=== PATIENT | female | born 1965 | race Caucasian/White ===

== ENCOUNTER 2018-04-23 12:02 | Emergency (ER) | payer OTHER ==
[~2018-04-23] VITALS: Ht 152.4 cm; Wt 80.0 kg
[~2018-04-23 12:02] MED LIST: ANTIVERT12.5 MG PO; AUGMENTIN875TAB PO; BACTRIM DS1 TAB OR; LISINOPRIL10 MG PO; MEDDOSEPAK PO; ZITHROMAX250 MG PO
[2018-04-23 13:59] VITALS: BP 150/90
== END 2018-04-23 14:10 | disposition home or self-care (01) | DRG 605 ==
LOC: ED 12:02
DX: S90.31XA Contusion of right foot, initial encounter (principal); S60.211A Contusion of right wrist, initial encounter; S40.011A Contusion of right shoulder, initial encounter; W10.9XXA Fall (on) (from) unspecified stairs and steps, initial encounter; Y92.009 Unspecified place in unspecified non-institutional (private) residence as the place of occurrence of the external cause

== ENCOUNTER 2019-12-18 12:01 | Emergency (ER) | payer OTHER ==
[~2019-12-18] VITALS: Ht 165.1 cm; Wt 79.5 kg
[2019-12-18] MEDS ORDERED: TESSALON PERLE100 MG PO (13:59)
[2019-12-18 14:01] VITALS: BP 159/95
--- NOTE | 2019-12-20 09:37 | NUR ---
Notified patient of positive Covid results. Advised patient to quarantine until contacted by the health department with further instructions. Patient c/o fatigue and slight hadache. Patient denies fever, cough or SOB. Advised patient to return to ED with difficulty breathing or other urgent needs. Patient verbalized understanding.
== END 2019-12-18 14:09 | disposition home or self-care (01) | DRG 179 ==
LOC: ED 12:01
DX: U07.1 COVID-19 (principal)

== ENCOUNTER 2023-10-29 16:43 | Emergency (ER) | payer OTHER ==
[~2023-10-29 16:43] MED LIST changes: +TESSALON PERLE100 MG PO
== END 2023-10-29 17:32 | disposition left against medical advice (07) | DRG 951 ==
LOC: ED 16:43 → LWOBS 17:32
DX: Z53.21 Procedure and treatment not carried out due to patient leaving prior to being seen by health care provider (principal)

== ENCOUNTER 2024-02-29 08:23 | Emergency (ER) | payer BC ==
[~2024-02-29] VITALS: Ht 152.4 cm; Wt 79.8 kg
[2024-02-29] VITALS (20 sets, daily range): BP systolic 115–154; BP diastolic 67–92
[2024-02-29 08:47] LABS: BASO% 0.2 % (0-3); EOS% 1.6 % (0-8); HEMATOCRIT 47.7 % (37.0-47.0); IMMATURE GRANULOCYTES 0.2 % (0.0-5.0); LYMPH% 16.4 % (15-41); MEAN CELL VOLUME 93.3 fL CALC (80.0-100.0); MEAN CORPUSCULAR HGB 29.4 pG CALC (26.0-32.0); MEAN CORPUSCULAR HGB CONC 31.4 g/dL CAL (32.0-36.0); MONO% 8.8 % (2-13); NEUT# 3.24 thou/uL (2.00-7.15); NEUT% 72.8 % (42-76); RED BLOOD COUNT 5.11 mill/uL (4.20-5.60); RED CELL DISTRI WIDTH 12.3 % (11.5-15.5)
[2024-02-29 08:58] LABS: ANION GAP 16 (6-22 (CALC)); BUN 9 mg/dL (7-17); BUN/CREATININE RATIO 8 (12-20 (CALC)); CARBON DIOXIDE 24 mmol/l (22-30); CHLORIDE 103 mmol/l (95-108); CREATININE 1.2 mg/dL (0.5-1.0); ESTIMATED GFR 52 ML/MIN (>=90 (CALC)); SGOT/AST 35 u/l (14-36); SODIUM 139 mmol/l (137-146); TOTAL PROTEIN 7.9 g/dL (6.3-8.2)
[2024-02-29 09:04] LABS: ALBUMIN 4.8 g/dL (3.2-5.0); ALKALINE PHOSPHATASE 117 u/l (38-126); BILIRUBIN, TOTAL 0.6 mg/dL (0.02-1.3)
[2024-02-29] MEDS ORDERED: AZITHROMYCIN 500 MG in SODIUM CHLORIDE 0.9% 250 ML IV ONE (09:35)
[2024-02-29] MEDS ORDERED: cefTRIAXone SODIUM 2 GM in SODIUM CHLORIDE 0.9% 100 ML IV ONE (09:35)
[2024-02-29 12:12] LABS: URINE BLOOD DIPSTICK Trace-intact (NEGATIVE); URINE GLUCOSE - DIPSTICK Negative (NEGATIVE); URINE KETONE Trace mg/dL (NEGATIVE); URINE LEUK ESTERASE Negative (NEGATIVE); URINE NITRITE - DIPSTICK Negative (Negative); URINE PROTEIN - DIPSTICK 100 mg/dL (NEG-TRACE); URINE UROBILINOGEN - DIPSTICK 0.2 E.U./dL (0.2)
[2024-02-29 12:13] LABS: URINE COLOR Yellow
[2024-02-29 12:20] LABS: URINE MUCUS FEW hpf (NONE-FEW); URINE RBC 0-2 RBC/hpf (0-5); URINE SQUAMOUS EPITHELIAL CELL RARE EPI/hpf (0-FEW)
[2024-02-29] MEDS ORDERED: VENTOLIN HFA108 MCG PO (13:25)
[2024-02-29] MEDS ORDERED: ZPAK PO (13:25)
[2024-02-29] MEDS ORDERED: KETOROLAC TROMETHAMINE 15 MG/ML SDV IV ONE (13:30)
== END 2024-02-29 13:39 | disposition home or self-care (01) | DRG 312 ==
LOC: ED 08:23
PROVIDERS: Family Medicine
DX: R55 Syncope and collapse (principal); J06.9 Acute upper respiratory infection, unspecified; I10 Essential (primary) hypertension; Z20.822 Contact with and (suspected) exposure to COVID-19
CPT/HCPCS: J0456; J0696; J1885; Q9967